=== PATIENT | female | born 1960 | race Caucasian/White ===

== ENCOUNTER 2018-10-20 11:43 | Observation (INO) ==
--- NOTE | 2018-10-20 12:04 | Emergency Department Note ---
Disposition Clinical Impression: Chest pain Disposition: Transfer Short-Term Hosp Condition: Good Time of Disposition: 15:09 Abdominal Pain HPI - General Chief Complaint: ED Abdominal Pain Stated Complaint: rt upper abdomen pain Time Seen by Provider: 10/20/18 11:50 Source: patient Mode of arrival: ambulatory Limitations: no limitations Nursing Notes Reviewed: Yes Vital Signs Reviewed: Yes - History of Present Illness HPI Narrative: Patient presents with three-day history of abdominal pain. She states she went to the main emergency department at [facility] in [place] and waited for 3 hours became upset because she did not get brought back went home and laid around the next 2 days until she came here. Last evening she developed chest pain that is been constant and unrelenting in her midsternal region. She says her arms feel heavy as well. Has not had any nausea vomiting shortness of breath or other complaints. Pt Subjective Complaint: abdominal pain, other (chest pain) Consistency: constant Location: diffuse Pain Scale: 8 Quality: stabbing Radiation: none Migration to: no migration Improves with: nothing Worsens with: nothing - Related Data Home Medications Medication Instructions Recorded Confirmed Amitriptyline [Elavil] 50 mg PO HS 05/01/15 10/20/18 Levothyroxine [Synthroid] 175 mcg PO DAILY 05/01/15 10/20/18 Lisinopril [Zestril] 20 mg PO DAILY 05/01/15 10/20/18 Omeprazole [PriLOSEC] 20 mg PO DAILY 05/01/15 10/20/18 metFORMIN [Glucophage] 1,000 mg PO BIDWM 05/01/15 10/20/18 Atorvastatin [Lipitor] 40 mg PO HS 10/20/18 10/20/18 Insulin Glargine/Lixisenatide 56 units SQ DAILY 10/20/18 10/20/18 [Soliqua 100 Unit-33 Mcg/ml Pen] Allergies Allergy/AdvReac Type Severity Reaction Status Date / Time codeine Allergy Swelling Verified 10/18/18 14:01 of Lip/Tongue/Throat All systems ED: reviewed and negative except as stated. Review of Systems: As Per HPI Constitutional: Denies: fever, chills, weakness, weight change Eyes: Denies: eye pain, eye discharge, vision change ENT ED: Denies: ear pain, throat pain, dental pain, hearing loss, epistaxis, congestion, dysphagia Cardiovascular: Reports: as per HPI, chest pain. Denies: palpitations, dyspnea on exertion, edema, syncope Respiratory: Denies: cough, dyspnea, wheezes, hemoptysis, stridor Gastrointestinal: Reports: as per HPI, abdominal pain Genitourinary: Denies: dysuria, frequency, hematuria, discharge Musculoskeletal: Denies: back pain, neck pain, arthralgia, myalgia Integumentary: Denies: rash, abrasion, lesions Neurological: Denies: headache, weakness, numbness, paresthesias, confusion, abnormal gait, vertigo Psychiatric: Denies: anxiety, depression, suicidal thoughts, homicidal thoughts, auditory hallucinations, visual hallucinations Endocrine: Denies: fatigue Hematological/Lymphatic: Denies: easy bleeding, easy bruising Allergic/Immunologic: Denies: facial swelling, urticaria Abdominal Pain PMH - Past Medical History Medical history: Reports: diabetes, hypertension, thyroid disease Female Surgical History: Reports: cholecystectomy, HIWOT/BSO, other RECEP history: Reports: no RECEP history Psychiatric history: Reports: no psych history - Social History Smoking status: Current every day smoker Alcohol use: Reports: none Drug use: Reports: none Physical Exam - General Limitations: no limitations General appearance: alert - Head Head exam: atraumatic, normocephalic, normal inspection - Eye Eye exam: Present: normal appearance, PERRL, EOMI - ENT ENT exam: normal exam, normal oropharynx, mucous membranes moist - Neck Neck exam: Present: normal inspection, full ROM, trachea midline - Chest Chest inspection: Present: normal inspection, symmetric chest wall rise - Respiratory Respiratory exam: Present: normal lung sounds bilaterally - Cardiovascular Cardiovascular exam: Present: regular rate, normal rhythm, normal heart sounds - Abdominal Exam Abdominal exam: Present: soft, Non-Tender, normal bowel sounds - Extremities Exam Extremities exam: Present: normal inspection, full ROM. Absent: tenderness, pedal edema - Back Exam Back exam: Present: normal inspection, full ROM. Absent: tenderness - Neurological Exam Neurological exam: Present: alert, oriented X3 - Psychiatric Psychiatric exam: Present: normal affect, normal mood - Skin Skin exam: Present: warm, dry, intact Course Vital Signs Temperature 97.8 F 10/20/18 11:44 Pulse Rate 70 10/20/18 11:44 Respiratory Rate 18 10/20/18 11:44 Blood Pressure 179/83 10/20/18 11:44 O2 Sat by Pulse Oximetry 95 10/20/18 11:44 Temperature 98.3 F 10/20/18 20:33 Pulse Rate 68 10/20/18 20:33 Respiratory Rate 16 10/20/18 20:33 Blood Pressure 123/55 10/20/18 20:33 O2 Sat by Pulse Oximetry 93 10/20/18 20:33 Oxygen Delivery Oxygen Delivery Room Air Abdominal Pain - MDM Narrative Medical decision making narrative: I reviewed the patient's medication list - Lab Data Lab results reviewed: Yes I reviewed the patient's lab results. Result diagrams: 10/20/18 12:20 10/20/18 12:20 Lab Results 10/20/18 10/20/18 10/20/18 Range/Units 12:20 12:20 12:20 WBC 11.3 H (4.3-11.1) K/mcL RBC 4.82 (3.82-4.97) M/mcL Hgb 14.6 (11.5-15.4) g/dL Hct 42.9 (35.3-44.9) % MCV 89.0 (83.0-100.0) fL MCH 30.3 (28.0-33.3) pg MCHC 34.0 (31.6-35.5) g/dL RDW 13.1 (11.5-14.5) % Plt Count 175 (140-400) K/mcL MPV 11.5 (9.4-12.4) fL Immature Gran % 0.3 (0-4) % Seg Neutrophils % 62.7 % Lymphocytes % 28.6 % Monocytes % 4.5 % Eosinophils % 2.8 % Basophils % 1.1 % Neutrophils # 7.1 (1.6-8.9) K/mcL Lymphocytes # 3.2 (0.6-4.6) K/mcL Monocytes # 0.5 (0.0-1.3) K/mcL Eosinophils # 0.3 (0.0-0.6) K/mcL Basophils # 0.1 (0.0-0.2) K/mcL PT 11.6 (9.4-12.1) Seconds INR 1.0 APTT 33.8 (26.0-36.0) Seconds Sodium 139 (136-145) mEq/L Potassium 4.3 (3.5-5.1) mEq/L Chloride 103 (98-107) mEq/L Carbon Dioxide 31 H (23-29) mEq/L BUN 16 (6-20) mg/dL Creatinine 0.75 (0.60-1.20) mg/dL Est GFR ( Amer) > 60 (> 60) Est GFR (Non-Af Amer) > 60 (> 60) BUN/Creatinine Ratio 21 (6-26) Glucose 194 H (70-105) mg/dL Calculated Osmolality 294 (280-300) Calcium 9.2 (8.6-10.3) mg/dL Total Bilirubin 0.4 (0.3-1.0) mg/dL AST 22 (13-39) Units/L ALT 18 (7-52) Units/L Alkaline Phosphatase 177 H (34-104) Units/L Troponin I < 0.03 (< 0.04) ng/mL Serum Total Protein 7.1 (6.4-8.9) g/dL Albumin 3.6 (3.5-5.7) g/dL Globulin 3.5 (2.4-3.5) g/dL Albumin/Globulin Ratio 1.0 L (1.1-2.2) Urine Color (Yellow) Urine Clarity (Clear) Urine pH (5.0-8.0) pH Units Ur Specific [place] (1.010-1.025) Urine Protein (Neg-Trace) mg/dL Urine Glucose (UA) (Normal) mg/dL Urine Ketones (Negative) mg/dL Urine Blood (Negative) Urine Nitrite (Negative) Urine Bilirubin (Negative) Urine Urobilinogen (Normal) mg/dL Ur Leukocyte Esterase (Negative) Urine Microscopic RBC (0-3) per hpf Urine Microscopic WBC (0-3) per hpf Ur Squamous Epith Cells (None-Few) per lpf Urine Bacteria (None-Few) per hpf Ur Culture Indicated? (NO) 10/20/18 10/20/18 Range/Units 13:15 14:34 WBC (4.3-11.1) K/mcL RBC (3.82-4.97) M/mcL Hgb (11.5-15.4) g/dL Hct (35.3-44.9) % MCV (83.0-100.0) fL MCH (28.0-33.3) pg MCHC (31.6-35.5) g/dL RDW (11.5-14.5) % Plt Count (140-400) K/mcL MPV (9.4-12.4) fL Immature Gran % (0-4) % Seg Neutrophils % % Lymphocytes % % Monocytes % % Eosinophils % % Basophils % % Neutrophils # (1.6-8.9) K/mcL Lymphocytes # (0.6-4.6) K/mcL Monocytes # (0.0-1.3) K/mcL Eosinophils # (0.0-0.6) K/mcL Basophils # (0.0-0.2) K/mcL PT (9.4-12.1) Seconds INR APTT (26.0-36.0) Seconds Sodium (136-145) mEq/L Potassium (3.5-5.1) mEq/L Chloride (98-107) mEq/L Carbon Dioxide (23-29) mEq/L BUN (6-20) mg/dL Creatinine (0.60-1.20) mg/dL Est GFR ( Amer) (> 60) Est GFR (Non-Af Amer) (> 60) BUN/Creatinine Ratio (6-26) Glucose (70-105) mg/dL Calculated Osmolality (280-300) Calcium (8.6-10.3) mg/dL Total Bilirubin (0.3-1.0) mg/dL AST (13-39) Units/L ALT (7-52) Units/L Alkaline Phosphatase (34-104) Units/L Troponin I < 0.03 (< 0.04) ng/mL Serum Total Protein (6.4-8.9) g/dL Albumin (3.5-5.7) g/dL Globulin (2.4-3.5) g/dL Albumin/Globulin Ratio (1.1-2.2) Urine Color Yellow (Yellow) Urine Clarity Clear (Clear) Urine pH 7.5 (5.0-8.0) pH Units Ur Specific [place] 1.015 (1.010-1.025) Urine Protein 30 H (Neg-Trace) mg/dL Urine Glucose (UA) Normal (Normal) mg/dL Urine Ketones Negative (Negative) mg/dL Urine Blood Trace-intact H (Negative) Urine Nitrite Negative (Negative) Urine Bilirubin Negative (Negative) Urine Urobilinogen Normal (Normal) mg/dL Ur Leukocyte Esterase Negative (Negative) Urine Microscopic RBC 0-3 (0-3) per hpf Urine Microscopic WBC 0-3 (0-3) per hpf Ur Squamous Epith Cells Few (None-Few) per lpf Urine Bacteria Few (None-Few) per hpf Ur Culture Indicated? YES A (NO) - Radiology Data Radiology results reviewed: Yes I reviewed the patient's radiology results. - EKG Data EKG attestation: Yes I reviewed and interpreted this EKG. EKG results narrative: EKG by my interpretation shows sinus rhythm at 64 bpm MD interval is 193 ms [place] 145 ms QTQTC intervals 433 and 4 and 47 ms respectively R axis of 84 degrees his right bundle-branch pattern no acute ST elevation is appreciated.
[2018-10-20] MEDS ORDERED: Aspirin 81 MG TAB.CHEW PO STA (12:06)
[2018-10-20] MEDS ORDERED: Nitroglycerin 0.4 MG TAB.SUBL SL PRN ×2 (12:06→15:58)
[2018-10-20] MEDS ORDERED: 0.9 % Sodium Chloride 1,000 ML IVC SCH ×2 (12:15→15:58)
[2018-10-20 12:27] LABS: Basophils # 0.1 K/mcL (0.0-0.2); Basophils % 1.1 %; Eosinophils # 0.3 K/mcL (0.0-0.6); Eosinophils % 2.8 %; Hematocrit 42.9 % (35.3-44.9); Hemoglobin 14.6 g/dL (11.5-15.4); Immature Granulocytes % 0.3 % (0-4); Lymphocytes # 3.2 K/mcL (0.6-4.6); Lymphocytes % 28.6 %; Mean Corpuscular Hemoglobin 30.3 pg (28.0-33.3); Mean Platelet Volume 11.5 fL (9.4-12.4); Monocytes # 0.5 K/mcL (0.0-1.3); Monocytes % 4.5 %; Neutrophils # 7.1 K/mcL (1.6-8.9); Platelet Count 175 K/mcL (140-400); Red Blood Count 4.82 M/mcL (3.82-4.97); Red Cell Distribution Width 13.1 % (11.5-14.5); Segmented Neutrophils % 62.7 %; White Blood Count 11.3 K/mcL (4.3-11.1)
[2018-10-20 12:35] LABS: Prothrombin Time 11.6 Seconds (9.4-12.1)
[2018-10-20 12:38] LABS: Activated Partial Thrombo Time 33.8 Seconds (26.0-36.0)
[2018-10-20 12:47] LABS: Alanine Aminotransferase 18 Units/L (7-52); Albumin 3.6 g/dL (3.5-5.7); Alkaline Phosphatase 177 Units/L (34-104); Aspartate Amino Transferase 22 Units/L (13-39); BUN/Creatinine Ratio 21 (6-26); Bilirubin,Total 0.4 mg/dL (0.3-1.0); Blood Urea Nitrogen 16 mg/dL (6-20); Calcium 9.2 mg/dL (8.6-10.3); Carbon Dioxide 31 mEq/L (23-29); Chloride 103 mEq/L (98-107); Globulin 3.5 g/dL (2.4-3.5); Glucose 194 mg/dL (70-105); Osmolality,Calculated 294 (280-300); Potassium 4.3 mEq/L (3.5-5.1); Sodium 139 mEq/L (136-145); Total Protein 7.1 g/dL (6.4-8.9); Troponin I < 0.03 ng/mL (< 0.04); eGFR For African Americans > 60 (> 60); eGFR For Non-African Americans > 60 (> 60)
[2018-10-20 13:38] LABS: Bilirubin,Urine Negative (Negative); Blood,Urine Trace-intact (Negative); Clarity,Urine Clear (Clear); Color,Urine Yellow (Yellow); Glucose,Urine (UA) Normal (Normal); Ketones,Urine Negative (Negative); Leukocyte Esterase,Urine Negative (Negative); Nitrite,Urine Negative (Negative); PH,Urine 7.5 pH Units (5.0-8.0); Protein,Urine 30 mg/dL (Neg-Trace); Specific Gravity,Urine 1.015 (1.010-1.025); Urobilinogen,Urine Normal (Normal)
[2018-10-20 13:53] LABS: RBC,Urine 0-3 per hpf (0-3); Squamous Epithelial Cell,Urine Few per lpf (None-Few); WBC,Urine 0-3 per hpf (0-3)
[2018-10-20 13:54] LABS: Bacteria,Urine Few per hpf (None-Few)
[2018-10-20] MEDS ORDERED: Naloxone 0.4 MG/ML INJ IVP PRN (15:58)
[2018-10-20] MEDS: *HR* Metformin 500 MG TABLET PO SCH (17:58)
[2018-10-20] MEDS ORDERED: Ibuprofen 600 MG TABLET PO PRN (19:41)
[2018-10-21 05:39] LABS: Basophils # 0.1 K/mcL (0.0-0.2); Basophils % 1.2 %; Eosinophils # 0.4 K/mcL (0.0-0.6); Eosinophils % 4.3 %; Hematocrit 40.7 % (35.3-44.9); Hemoglobin 13.9 g/dL (11.5-15.4); Immature Granulocytes % 0.2 % (0-4); Lymphocytes # 3.5 K/mcL (0.6-4.6); Lymphocytes % 40.8 %; Mean Corpuscular HGB Conc 34.2 g/dL (31.6-35.5); Mean Corpuscular Hemoglobin 30.1 pg (28.0-33.3); Mean Corpuscular Volume 88.1 fL (83.0-100.0); Mean Platelet Volume 12.1 fL (9.4-12.4); Monocytes # 0.5 K/mcL (0.0-1.3); Monocytes % 5.3 %; Neutrophils # 4.2 K/mcL (1.6-8.9); Platelet Count 168 K/mcL (140-400); Red Blood Count 4.62 M/mcL (3.82-4.97); Red Cell Distribution Width 13.1 % (11.5-14.5); Segmented Neutrophils % 48.2 %; White Blood Count 8.6 K/mcL (4.3-11.1)
[2018-10-21 06:02] LABS: BUN/Creatinine Ratio 22 (6-26); Blood Urea Nitrogen 15 mg/dL (6-20); Calcium 8.9 mg/dL (8.6-10.3); Carbon Dioxide 28 mEq/L (23-29); Chloride 105 mEq/L (98-107); Glucose 161 mg/dL (70-105); Osmolality,Calculated 294 (280-300); Potassium 3.7 mEq/L (3.5-5.1); Sodium 140 mEq/L (136-145); eGFR For African Americans > 60 (> 60); eGFR For Non-African Americans > 60 (> 60)
[2018-10-21] MEDS: *HR* Metformin 500 MG TABLET PO SCH (08:02)
[2018-10-21] MEDS ORDERED: Nicotine 21 MG PATCH.TD24 TD SCH (09:00)
[2018-10-21] MEDS ORDERED: Lisinopril 20 MG TABLET PO SCH (09:00)
[2018-10-21] MEDS ORDERED: INSULIN GLARGINE SQ SCH (09:00)
[2018-10-21] MEDS ORDERED: LIXISENATIDE SQ SCH (09:00)
[2018-10-21 11:01] VITALS: BP 145/87
--- NOTE | 2018-10-21 12:13 | Internal Med History&Physical ---
Date of Encounter: 10/21/18 Time of Encounter: 11:35 Assessment and Plan (1) Chest pain Current visit: Yes Status: Resolved Repeat cardiac enzymes were ordered in the emergency room. Qualifiers: Chest pain type: unspecified Qualified Code(s): R07.9 - Chest pain, unspecified Internal Medicine - H&P: HPI Chief complaint: Vomiting and chest discomfort Admitted From: Emergency Dept Plans for Post Hospital Care: Home History of present illness: Ms. Dickey is a 57 year old female who came to emergency room stating she had onset of vomiting approximately 10/16/2018. She saw her PCP 2 days later and received a prescription for Zofran which seemed to lessen the vomiting. The evening of October 19 she developed some discomfort in her chest while at rest that she describes as "pressure." She denies dyspnea or diaphoresis. She took an Advil with some relief. The following morning the pressure sensation recurred so she came to emergency room. She was evaluated and admitted to [facility] for ongoing care needs. She denies previous similar chest pressure sensation. She does not get angina or anginal equivalents walking upstairs in her home but reports leg fatigue. Cardiovascular history is significant for hypertension and chronic right bundle branch block. She denies NM heart failure DVT or pulmonary embolus. GI history is pertinent for cholecystectomy 2018 following an episode of pancreatitis. She reports diarrhea one day last week which resolved spontaneously. She has had intermittent abdominal discomfort for several months that seems to be in her mid abdominal area radiating to her back. She denies known disorders of her liver or exocrine pancreas otherwise. Past Med Surg Social Fam HX - Past Medical History Medical history: diabetes, hypertension, thyroid disease Psychiatric history: no psych history - Past Surgical History Surgical History: hysterectomy Additional surgical history: GOITER REMOVED. - Social History Smoking Status: Current every day smoker Packs per day: 1.5 Smokeless Tobacco Status: No Alcohol use: none Drug use: none Internal Medicine - H&P: Meds Amitriptyline [Elavil] 50 mg PO HS 05/01/15 [History] Levothyroxine [Synthroid] 175 mcg PO DAILY 05/01/15 [History] Lisinopril [Zestril] 20 mg PO DAILY 05/01/15 [History] Omeprazole [PriLOSEC] 20 mg PO DAILY 05/01/15 [History] metFORMIN [Glucophage] 1,000 mg PO BIDWM 05/01/15 [History] Atorvastatin [Lipitor] 40 mg PO HS 10/20/18 [History] Insulin Glargine/Lixisenatide [Soliqua 100 Unit-33 Mcg/ml Pen] 56 units SQ DAILY 10/20/18 [History] Allergy/AdvReac Type Severity Reaction Status Date / Time codeine Allergy Swelling Verified 10/18/18 14:01 of Lip/Tongue/Throat All Systems PM: A 10-system review of systems was performed and is negative for pertinent findings except as documented above in the HPI. Review of systems: Gen.: She states her weight has decreased approximately 15 pounds in the past 2 years, somewhat intentionally Cardiovascular: As per history of present illness Respiratory: She has smoked since age 16 up to 2 packs per day. She denies chronic lung disease and does not use home oxygen. GI: As per history of present illness : She had a kidney stone approximately 2 years ago. She denies other kidney or bladder disorders. Neurologic: She denies large distribution strokes or seizures. Endocrine: She was diagnosed with DM 2 approximately 1999. She has hypothyroidism following subtotal thyroidectomy surgery for goiter. She is on replacement levothyroxine. She has history of hyperlipidemia. Hematology/oncology: She had uterine cancer with curative hysterectomy approximately 2012. She is presumed cancer free. She denies other internal malignancies, blood disorders, or anemia Psychiatric: She denies anxiety depression or other mental health issues [place] skeletal: She has RLS and DJD. She denies gout or other bone joint or muscle disorders. - Constitutional Vitals: Temp Pulse Resp BP Pulse Ox 98.4 F 67 20 145/87 95 10/21/18 10:56 10/21/18 10:56 10/21/18 10:56 10/21/18 10:56 10/21/18 10:56 Exam: Gen.: She is a well-developed well-nourished female resting comfortably in bed who appears in no acute distress. She denies pain or dyspnea at this time. HEENT: Head is atraumatic and normal cephalic. Eyes: EOMI. There is no scleral icterus. Mouth: Mucosa is moist. Neck: Supple and nontender. There is no thyromegaly or adenopathy noted. Heart: Regular without murmurs gallops or ectopics Lungs: No wheezes or crackles are heard. Chest: She has nontender chest wall to palpation. Abdomen: Bowel sounds are present. The abdomen is nontender to palpation. No masses or guarding are noted. Extremities: There is no cyanosis edema or clubbing noted. She has hair on her dorsal great toes bilaterally. Dorsalis pedis and posterior tibial pulses are 1-2 over 2 bilaterally. Her feet are warm to touch. Neurologic: Mental status: She is talkative and a good historian. Cranial nerves: Smile is symmetric. Forehead wrinkles bilaterally. Tongue protrudes midline. EOMI. Motor: There is no pronator drift. Cerebellar: Finger to nose is intact bilaterally. Skin: Warm and dry Internal Med - H&P Results - Labs CBC & Chem 7: 10/21/18 04:39 10/21/18 04:39 Labs: Short CBC 10/20/18 10/21/18 Range/Units 12:20 04:39 WBC 11.3 H 8.6 (4.3-11.1) K/mcL Hgb 14.6 13.9 (11.5-15.4) g/dL Hct 42.9 40.7 (35.3-44.9) % Plt Count 175 168 (140-400) K/mcL Neutrophils # 7.1 4.2 (1.6-8.9) K/mcL BMP 10/20/18 10/21/18 12:20 04:39 Sodium 139 140 Potassium 4.3 3.7 Chloride 103 105 Carbon Dioxide 31 H 28 BUN 16 15 Creatinine 0.75 0.68 Glucose 194 H 161 H Calcium 9.2 8.9 Cardiac Enzymes 10/20/18 10/20/18 10/20/18 Range/Units 12:20 14:34 21:06 Troponin I < 0.03 < 0.03 < 0.03 (< 0.04) ng/mL 10/21/18 Range/Units 04:39 Troponin I < 0.03 (< 0.04) ng/mL Liver Function 10/20/18 Range/Units 12:20 Total Bilirubin 0.4 (0.3-1.0) mg/dL AST 22 (13-39) Units/L ALT 18 (7-52) Units/L Alkaline Phosphatase 177 H (34-104) Units/L Albumin 3.6 (3.5-5.7) g/dL Urine 10/20/18 Range/Units 13:15 Urine Color Yellow (Yellow) Urine Clarity Clear (Clear) Urine pH 7.5 (5.0-8.0) pH Units Ur Specific [place] 1.015 (1.010-1.025) Urine Protein 30 H (Neg-Trace) mg/dL Urine Glucose (UA) Normal (Normal) mg/dL - Impressions ITS Impressions Chest X-Ray 10/20/18 12:04 IMPRESSION: No acute cardiopulmonary disease. D/ / Sheila Hernandez MD / Sheila Hernandez MD Interpreting Provider: Sheila Hernandez MD Abdomen/Pelvis CT 10/20/18 12:41 IMPRESSION: No acute inflammatory process in the abdomen or pelvis. No renal or ureteral calculi. No obstructive uropathy. D/ / 10/20/2018 14:11:13 Tino Morfin MD / chung Interpreting Provider: Tino Morfin MD
--- NOTE | 2018-10-21 12:26 | Discharge Summary ---
Orders not resulted at time of discharge: Pending orders 10/20/18 13:15 Culture,Urine [RM] Stat Date of Encounter: 10/21/18 Time of Encounter: 11:35 - Discharge Diagnosis (1) Chest pain Priority: Primary Status: Resolved Qualifiers: Chest pain type: unspecified Qualified Code(s): R07.9 - Chest pain, unspecified (2) Abdominal pain Priority: Secondary Status: Resolved Qualifiers: Abdominal location: epigastric Qualified Code(s): R10.13 - Epigastric pain Hospital course: Ms. Dickey is a 57 year old female who came to emergency room stating she had onset of vomiting approximately 10/16/2018. She saw her PCP 2 days later and received a prescription for Zofran which seemed to lessen the vomiting. The evening of October 19 she developed some discomfort in her chest while at rest that she describes as "pressure." She denies dyspnea or diaphoresis. She took an Advil with some relief. The following morning the pressure sensation recurred so she came to emergency room. She was evaluated and admitted to [facility] for ongoing care needs. Initial orders were written by the emergency room physician. I saw her on October 21 and performed a history physical and discharge. Repeat cardiac enzymes showed no evidence of myocardial damage. When I saw her she stated she had no vomiting for 3 days and her chest discomfort had resolved. The etiology of her chest discomfort was not determined with certainty. I told her if the chest pressure discomfort returned she should discuss with her PCP further cardiac evaluation. I also told her she should discuss with her PCP the intermittent abdominal pain that has been present for several months. She was pain free when I saw her but I note she is on Soliqua which has lixisenatide which has been associated with pancreatitis. Her PCP can discuss this further with her. On October 21 she felt improved and stable for discharge home. She will follow with her PCP Umm Pagan CNP within 1 week. - Time Spent with Patient Total time spent providing and/or coordinating discharge services: - Discharge Medications Prescriptions: Continued Amitriptyline [Elavil] 50 mg PO HS Levothyroxine [Synthroid] 175 mcg PO DAILY Omeprazole [PriLOSEC] 20 mg PO DAILY metFORMIN [Glucophage] 1,000 mg PO BIDWM Lisinopril [Zestril] 20 mg PO DAILY Atorvastatin [Lipitor] 40 mg PO HS Insulin Glargine/Lixisenatide [[place] 100 Unit-33 Mcg/ml Pen] 56 units SQ DAILY Home Medications: Amitriptyline [Elavil] 50 mg PO HS 05/01/15 [History] Levothyroxine [Synthroid] 175 mcg PO DAILY 05/01/15 [History] Lisinopril [Zestril] 20 mg PO DAILY 05/01/15 [History] Omeprazole [PriLOSEC] 20 mg PO DAILY 05/01/15 [History] metFORMIN [Glucophage] 1,000 mg PO BIDWM 05/01/15 [History] Atorvastatin [Lipitor] 40 mg PO HS 10/20/18 [History] Insulin Glargine/Lixisenatide [[place] 100 Unit-33 Mcg/ml Pen] 56 units SQ DAILY 10/20/18 [History] Allergies/Adverse Reactions: Allergy/AdvReac Type Severity Reaction Status Date / Time codeine Allergy Swelling Verified 10/18/18 14:01 of Lip/Tongue/Throat Date of admission: 10/20/18 15:42 Primary care physician: Umm Pagan CNP - Constitutional Vitals: Temp Pulse Resp BP Pulse Ox 98.4 F 67 20 145/87 95 10/21/18 10:56 10/21/18 10:56 10/21/18 10:56 10/21/18 10:56 10/21/18 10:56 - Patient Status Disposition: Home, Self-Care Condition: Good - Discharge Instructions Follow Up With: Umm Pagan CNP [Primary Care Provider] - 1 week - Diet and Activity Activity: resume usual activities as tolerated Diet: diabetic diet
--- NOTE | 2018-10-21 17:55 | Electrocardiograph Report ---
[place] [id number] Test Date: 2018-10-20 Pat Name: Kelsie Dickey Department: EDP-12 Room: [facility] Gender: F Desizing Pad Operator: : [id number] Requested By: Ras Call Order Number: [id number] Reading MD: Jordana Molina Measurements Intervals [place] Rate: 64 P: 75 HI: 193 QRS: 84 QRSD: 145 T: 10 QT: 433 QTc: 447 Interpretive Statements Sinus rhythm Right bundle branch block Electronically Signed On 10-21-2018 17:53:51 EDT by Jordana Molina
== END 2018-10-21 13:22 | disposition home or self-care (01) ==
LOC: EMEROOPIK 11:43 → INPPIK 11:43
PROVIDERS: ADMIT Family Medicine; ATTEND Internal Medicine

== ENCOUNTER 2021-06-16 11:33 | Inpatient (IN) ==
[2021-06-16] MEDS ORDERED: Insulin Regular, Human 100 UNIT/ML SUBQ ONE (11:44)
[2021-06-16] MEDS: 0.9 % Sodium Chloride 1,000 ML IVC SCH ×2 (11:58→20:52)
[2021-06-16 12:07] LABS: Basophils % 0.2 %; Eosinophils % 0.2 %; Hematocrit 23.4 % (35.3-44.9); Hemoglobin 7.1 g/dL (11.5-15.4); Immature Granulocytes % 0.5 % (0-4); Lymphocytes # 0.7 K/mcL (0.6-4.6); Lymphocytes % 5.6 %; Mean Corpuscular HGB Conc 30.3 g/dL (31.6-35.5); Mean Corpuscular Hemoglobin 29.1 pg (28.0-33.3); Mean Corpuscular Volume 95.9 fL (83.0-100.0); Mean Platelet Volume 13.1 fL (9.4-12.4); Monocytes # 0.4 K/mcL (0.0-1.3); Monocytes % 3.5 %; Neutrophils # 10.4 K/mcL (1.6-8.9); Platelet Count 172 K/mcL (140-400); Red Blood Count 2.44 M/mcL (3.82-4.97); Red Cell Distribution Width 18.5 % (11.5-14.5); White Blood Count 11.6 K/mcL (4.3-11.1)
[2021-06-16 12:14] LABS: INR 1.6; Prothrombin Time 17.7 Seconds (9.4-12.1)
[2021-06-16 12:17] LABS: Activated Partial Thrombo Time 35.2 Seconds (26.0-36.0)
[2021-06-16 12:33] LABS: Albumin 2.5 g/dL (3.5-5.7); Albumin/Globulin Ratio 0.7 (1.1-2.2); Bilirubin,Direct 4.7 mg/dL (0.0-0.2); Bilirubin,Indirect 3.7 mg/dL (0.0-1.0); Bilirubin,Total 8.4 mg/dL (0.3-1.0); Calcium 8.5 mg/dL (8.6-10.3); Globulin 3.8 g/dL (2.4-3.5); Potassium 4.4 mEq/L (3.5-5.1); Total Protein 6.3 g/dL (6.4-8.9)
[2021-06-16] MEDS ORDERED: Piperacillin/Tazobactam 3.375 GM in 0.9 % Sodium Chloride Mini Bag 100 ML IVPB ONE (12:42)
[2021-06-16] MEDS ORDERED: Naloxone 0.4 MG/ML INJ IVP PRN (15:24)
[2021-06-16] MEDS ORDERED: Melatonin 3 MG TABLET PO PRN (15:24)
[2021-06-16] MEDS ORDERED: Ondansetron ODT 4 MG TAB.RAPDIS SL PRN (15:24)
[2021-06-16] MEDS ORDERED: MOM Conc 10 ML UD.LIQ PO PRN (15:24)
[2021-06-16] MEDS ORDERED: Mag Hydrox/Al Hydrox/Simeth 30 ML UDC PO PRN (15:24)
[2021-06-16] MEDS ORDERED: D5% in Water 1,000 ML IVC PRN (15:29)
[2021-06-16] MEDS ORDERED: Dextrose Gel 15 GM/37.5 ML TUBE PO PRN ×2 (15:29)
[2021-06-16] MEDS ORDERED: *HR* Dextrose 50 % in Water (Syg) 50 ML SYRINGE IVP PRN (15:29)
[2021-06-16] MEDS ORDERED: Azithromycin 500 MG in 0.9 % Sodium Chloride 250 ML IVPB SCH (15:32)
[2021-06-16] MEDS ORDERED: cefTRIAXone 1,000 MG in 0.9 % Sodium Chloride Mini Bag 100 ML IVPB SCH (15:33)
[2021-06-16] MEDS ORDERED: Pantoprazole 40 MG VIAL IVP ONE (15:56)
[2021-06-16] MEDS: Insulin LISPRO 300 UNITS/3 ML VIAL SUBQ SCH ×2 (17:02→23:17)
[2021-06-16] MEDS ORDERED: 0.9 % Sodium Chloride 250 ML ONE (17:18)
[2021-06-16] MEDS: cefTRIAXone 1,000 MG in 0.9 % Sodium Chloride Mini Bag 100 ML IVPB SCH (20:46)
[2021-06-16] MEDS: Azithromycin 500 MG in 0.9 % Sodium Chloride 250 ML IVPB SCH (21:28)
[2021-06-17] MEDS: 0.9 % Sodium Chloride 1,000 ML IVC SCH (02:47)
[2021-06-17 07:37] LABS: Basophils % 0.1 %; Hematocrit 22.7 % (35.3-44.9); Hemoglobin 7.1 g/dL (11.5-15.4); Immature Granulocytes % 0.5 % (0-4); Lymphocytes # 1.1 K/mcL (0.6-4.6); Lymphocytes % 8.9 %; Mean Corpuscular HGB Conc 31.3 g/dL (31.6-35.5); Mean Corpuscular Hemoglobin 29.5 pg (28.0-33.3); Mean Corpuscular Volume 94.2 fL (83.0-100.0); Mean Platelet Volume 12.7 fL (9.4-12.4); Monocytes # 0.4 K/mcL (0.0-1.3); Monocytes % 3.5 %; Neutrophils # 10.7 K/mcL (1.6-8.9); Platelet Count 153 K/mcL (140-400); Red Blood Count 2.41 M/mcL (3.82-4.97); White Blood Count 12.3 K/mcL (4.3-11.1)
[2021-06-17 07:44] LABS: INR 1.6; Prothrombin Time 18.1 Seconds (9.4-12.1)
[2021-06-17] MEDS: Insulin LISPRO 300 UNITS/3 ML VIAL SUBQ SCH ×4 (07:47→22:00)
[2021-06-17] MEDS: Azithromycin 500 MG in 0.9 % Sodium Chloride 250 ML IVPB SCH (07:48)
[2021-06-17 07:56] LABS: Albumin 2.3 g/dL (3.5-5.7); Albumin/Globulin Ratio 0.7 (1.1-2.2); Bilirubin,Total 7.4 mg/dL (0.3-1.0); Globulin 3.5 g/dL (2.4-3.5); Potassium 4.2 mEq/L (3.5-5.1); Total Protein 5.8 g/dL (6.4-8.9)
[2021-06-17] MEDS: Insulin DETEMIR 100 UNIT/ML X5UNITS SUBQ SCH (08:28)
[2021-06-17] MEDS: Aspirin Enteric Coated 81 MG Tablet PO SCH (08:28)
[2021-06-17] MEDS ORDERED: Perflutren Lipid Microsphere 1.3 ML in 0.9 % Sodium Chloride 8.7 ML IVP PRN (08:29)
[2021-06-17] MEDS: cefTRIAXone 1,000 MG in 0.9 % Sodium Chloride Mini Bag 100 ML IVPB SCH (09:14)
[2021-06-17] MEDS: Pantoprazole 40 MG VIAL IVP SCH ×2 (09:29→17:24)
[2021-06-17] MEDS: Albumin 25% 25gram/100mL 25 GM/100 ML IV.SOLN IVPB SCH ×2 (10:50→17:24)
[2021-06-17] MEDS ORDERED: Furosemide 40 MG/4 ML VIAL IVP ONE (11:45)
[2021-06-17 13:57] LABS: Estimated Average Glucose 189 mg/dl; Hemoglobin A1C 8.2 %
[2021-06-17 13:58] LABS: Hematocrit 21.8 % (35.3-44.9); Hemoglobin 6.6 g/dL (11.5-15.4)
[2021-06-18] MEDS: Albumin 25% 25gram/100mL 25 GM/100 ML IV.SOLN IVPB SCH (01:02)
[2021-06-18] MEDS: Pantoprazole 40 MG VIAL IVP SCH (06:12)
[2021-06-18 08:31] LABS: Hematocrit 20.1 % (35.3-44.9); Hemoglobin 6.1 g/dL (11.5-15.4); Mean Corpuscular HGB Conc 30.3 g/dL (31.6-35.5); Mean Corpuscular Hemoglobin 28.5 pg (28.0-33.3); Mean Corpuscular Volume 93.9 fL (83.0-100.0); Mean Platelet Volume 12.7 fL (9.4-12.4); Platelet Count 138 K/mcL (140-400); Red Blood Count 2.14 M/mcL (3.82-4.97); Red Cell Distribution Width 18.1 % (11.5-14.5); White Blood Count 11.3 K/mcL (4.3-11.1)
[2021-06-18 08:41] LABS: INR 1.8
[2021-06-18 08:50] LABS: Alanine Aminotransferase 263 Units/L (7-52); Albumin 2.9 g/dL (3.5-5.7); Albumin/Globulin Ratio 0.9 (1.1-2.2); Alkaline Phosphatase 792 Units/L (34-104); Aspartate Amino Transferase 621 Units/L (13-39); BUN/Creatinine Ratio 23 (6-26); Bilirubin,Total 7.1 mg/dL (0.3-1.0); Blood Urea Nitrogen 65 mg/dL (6-20); Calcium 8.5 mg/dL (8.6-10.3); Carbon Dioxide 24 mEq/L (23-29); Chloride 99 mEq/L (98-107); Globulin 3.2 g/dL (2.4-3.5); Glucose 198 mg/dL (70-105); Osmolality,Calculated 300 (280-300); Sodium 133 mEq/L (136-145); Total Protein 6.1 g/dL (6.4-8.9); eGFR For African Americans 20 (> 60); eGFR For Non-African Americans 17 (> 60)
[2021-06-18] MEDS: Aspirin Enteric Coated 81 MG Tablet PO SCH (08:58)
[2021-06-18] MEDS: Insulin DETEMIR 100 UNIT/ML X5UNITS SUBQ SCH (08:58)
[2021-06-18] MEDS: cefTRIAXone 1,000 MG in 0.9 % Sodium Chloride Mini Bag 100 ML IVPB SCH (08:59)
[2021-06-18] MEDS: Insulin LISPRO 300 UNITS/3 ML VIAL SUBQ SCH ×4 (08:59→22:11)
[2021-06-18] MEDS: Azithromycin 500 MG in 0.9 % Sodium Chloride 250 ML IVPB SCH (09:00)
[2021-06-18] MEDS ORDERED: 0.9 % Sodium Chloride 250 ML ONE (15:46)
[2021-06-18 22:57] LABS: Iron < 10 mcg/dL (50-170); Transferrin 220 mg/dL (203-362)
[2021-06-18 23:04] LABS: Folate 13.1 ng/mL (3.0-16.0)
[2021-06-19 07:49] LABS: Hematocrit 22.3 % (35.3-44.9); Hemoglobin 6.9 g/dL (11.5-15.4); Mean Corpuscular HGB Conc 30.9 g/dL (31.6-35.5); Mean Corpuscular Hemoglobin 28.6 pg (28.0-33.3); Mean Corpuscular Volume 92.5 fL (83.0-100.0); Mean Platelet Volume 12.6 fL (9.4-12.4); Platelet Count 123 K/mcL (140-400); Red Blood Count 2.41 M/mcL (3.82-4.97); White Blood Count 11.4 K/mcL (4.3-11.1)
[2021-06-19 08:02] LABS: INR 1.8; Prothrombin Time 20.1 Seconds (9.4-12.1)
[2021-06-19 08:16] VITALS: RESP 18
[2021-06-19 08:56] LABS: Albumin 2.6 g/dL (3.5-5.7); Albumin/Globulin Ratio 0.8 (1.1-2.2); Bilirubin,Total 7.7 mg/dL (0.3-1.0); Calcium 8.5 mg/dL (8.6-10.3); Globulin 3.3 g/dL (2.4-3.5); Magnesium 2.2 mg/dL (1.6-2.6); Total Protein 5.9 g/dL (6.4-8.9)
[2021-06-19] MEDS: Insulin LISPRO 300 UNITS/3 ML VIAL SUBQ SCH ×3 (09:06→17:59)
[2021-06-19] MEDS: Aspirin Enteric Coated 81 MG Tablet PO SCH (09:06)
[2021-06-19] MEDS: Insulin DETEMIR 100 UNIT/ML X5UNITS SUBQ SCH (09:07)
[2021-06-19] MEDS: cefTRIAXone 1,000 MG in 0.9 % Sodium Chloride Mini Bag 100 ML IVPB SCH (09:07)
[2021-06-19 11:49] VITALS: BP 106/67; PULSE 68; TEMP 98.4; O2SAT 95
[2021-06-19] MEDS ORDERED: Iron Sucrose Complex 200 MG in 0.9 % Sodium Chloride 100 ML IVPB SCH ×2 (16:00→23:39)
[2021-06-19] MEDS ORDERED: Albumin 25% 25gram/100mL 25 GM/100 ML IV.SOLN IVPB SCH (17:00)
== END 2021-06-19 19:47 | disposition short-term general hospital (02) | DRG 663 ==
LOC: EMEROOPIK 11:33 → INPPIK 11:33
PROVIDERS: ADMIT Family Medicine; ATTEND Family Medicine